=== PATIENT | female | born 1970 | race Caucasian/White ===

== ENCOUNTER 2018-03-10 06:45 | Observation (INO) | payer BC ==
[2018-03-10] MEDS ORDERED: SODIUM CHLORIDE 0.9% 1,000 ML IV STA (07:53)
[2018-03-10] MEDS ORDERED: FAMOTIDINE 20 MG/2 ML VIAL IV STA (07:53)
[2018-03-10] MEDS ORDERED: ONDANSETRON 4 MG/2 ML VIAL IVP STA (07:53)
--- NOTE | 2018-03-10 07:59 | ED ---
General Adult HPI - General Chief complaint: Abdominal Pain Stated complaint: Poss gallstones Time Seen by Provider: 03/10/18 07:11 Source: patient, family, RN notes reviewed Mode of arrival: ambulatory Limitations: no limitations - History of Present Illness Initial comments: Patient 47-year-old female presented to the emergency room today with chief complaint of epigastric and upper quadrant pain. Patient states that she's had similar symptoms in the past with gallbladder issues. She does admit that she been told she has gallstones. She states she is usually able to watch her diet. She states that symptoms started last night approximately midnight. She states increased epigastric pain and right upper quadrant. Patient denies any other complaints or symptoms currently. Patient denies any recent fever, chills , shortness of breath, chest pain, back pain, numbness or tingling, dysuria or hematuria, constipation or diarrhea, headaches or visual changes, or any other complaints. - Related Data Home Medications Medication Instructions Recorded Confirmed Loratadine-Pseudoeph 10-240 mg 1 tab PO DAILY 03/10/18 03/10/18 [Claritin-D 24 Hr] Allergies Allergy/AdvReac Type Severity Reaction Status Date / Time No Known Allergies Allergy Verified 03/10/18 07:17 Review of Systems ROS Statement: Those systems with pertinent positive or pertinent negative responses have been documented in the HPI. ROS Other: All systems not noted in ROS Statement are negative. Past Medical History Additional Past Medical History / Comment(s): gall stones History of Any Multi-Drug Resistant Organisms: None Reported Additional Past Surgical History / Comment(s): partial thyroid Past Psychological History: No Psychological Hx Reported Smoking Status: Never smoker Past Alcohol Use History: Occasional Past Drug Use History: None Reported General Exam - General Exam Comments Initial Comments: General: The patient is awake and alert, in no distress, and does not appear acutely ill. Eye: Extra-ocular movements are intact. No nystagmus. There is normal conjunctiva bilaterally. No signs of icterus. Ears, nose, mouth and throat: There are moist mucous membranes and no oral lesions. Neck: The neck is supple, there is no tenderness or JVD. Cardiovascular: There is a regular rate and rhythm. No murmur, rub or gallop is appreciated. Respiratory: Lungs are clear to auscultation, respirations are non-labored, breath sounds are equal. No wheezes, stridor, rales, or rhonchi. Gastrointestinal: Abdomen soft on palpation. Patient does have tenderness epigastric and right upper quadrants. No rebound, guarding or CVA tenderness. Musculoskeletal: Normal ROM, no tenderness. Sensation intact. Neurological: A&O x 3. CN II-XII intact, There are no obvious motor or sensory deficits. Coordination appears grossly intact. Speech is normal. Skin: Skin is warm and dry and no rashes or lesions are noted. Psychiatric: Cooperative, appropriate mood & affect, normal judgment. Limitations: no limitations Course Vital Signs 03/10/18 06:47 Temperature 98.2 F Pulse Rate 78 Respiratory 18 Rate Blood Pressure 134/84 O2 Sat by Pulse 98 Oximetry Medical Decision Making - Medical Decision Making Patient's labs been reviewed. Patient's worsen, complete currently. Patient ultrasound does show normal bowel stone in the neck of gallbladder. Case discussed with attending physician Dr. Farmer who did discuss case with surgeon plant floor automation manager Dr. Hartley will admit the patient. - Lab Data Result diagrams: 03/10/18 07:55 03/10/18 07:55 Lab Results 03/10/18 03/10/18 03/10/18 Range/Units 07:40 07:40 07:55 WBC (3.8-10.6) k/uL RBC (3.80-5.40) m/uL Hgb (11.4-16.0) gm/dL Hct (34.0-46.0) % MCV (80.0-100.0) fL MCH (25.0-35.0) pg MCHC (31.0-37.0) g/dL RDW (11.5-15.5) % Plt Count (150-450) k/uL Neutrophils % % Lymphocytes % % Monocytes % % Eosinophils % % Basophils % % Neutrophils # (1.3-7.7) k/uL Lymphocytes # (1.0-4.8) k/uL Monocytes # (0-1.0) k/uL Eosinophils # (0-0.7) k/uL Basophils # (0-0.2) k/uL Sodium 138 (137-145) mmol/L Potassium 4.5 (3.5-5.1) mmol/L Chloride 106 (98-107) mmol/L Carbon Dioxide 25 (22-30) mmol/L Anion Gap 7 mmol/L BUN 13 (7-17) mg/dL Creatinine 0.63 (0.52-1.04) mg/dL Est GFR (CKD-EPI)AfAm >90 (>60 ml/min/1.73 sqM) Est GFR (CKD-EPI)NonAf >90 (>60 ml/min/1.73 sqM) Glucose 110 H (74-99) mg/dL Calcium 8.5 (8.4-10.2) mg/dL Total Bilirubin 0.3 (0.2-1.3) mg/dL AST 20 (14-36) U/L ALT 24 (9-52) U/L Alkaline Phosphatase 56 (38-126) U/L Total Protein 6.5 (6.3-8.2) g/dL Albumin 3.8 (3.5-5.0) g/dL Amylase 31 (30-110) U/L Lipase 138 (23-300) U/L Urine Color Yellow Urine Appearance Clear (Clear) Urine pH 5.5 (5.0-8.0) Ur Specific [place] 1.022 (1.001-1.035) Urine Protein Negative (Negative) Urine Glucose (UA) Negative (Negative) Urine Ketones Negative (Negative) Urine Blood Negative (Negative) Urine Nitrite Negative (Negative) Urine Bilirubin Negative (Negative) Urine Urobilinogen <2.0 (<2.0) mg/dL Ur Leukocyte Esterase Negative (Negative) Urine HCG, Qual Not Detected (Not Detectd) 03/10/18 Range/Units 07:55 WBC 8.9 (3.8-10.6) k/uL RBC 4.66 (3.80-5.40) m/uL Hgb 13.7 (11.4-16.0) gm/dL Hct 41.8 (34.0-46.0) % MCV 89.8 (80.0-100.0) fL MCH 29.4 (25.0-35.0) pg MCHC 32.7 (31.0-37.0) g/dL RDW 13.2 (11.5-15.5) % Plt Count 228 (150-450) k/uL Neutrophils % 80 % Lymphocytes % 10 % Monocytes % 3 % Eosinophils % 7 % Basophils % 0 % Neutrophils # 7.1 (1.3-7.7) k/uL Lymphocytes # 0.9 L (1.0-4.8) k/uL Monocytes # 0.3 (0-1.0) k/uL Eosinophils # 0.6 (0-0.7) k/uL Basophils # 0.0 (0-0.2) k/uL Sodium (137-145) mmol/L Potassium (3.5-5.1) mmol/L Chloride (98-107) mmol/L Carbon Dioxide (22-30) mmol/L Anion Gap mmol/L BUN (7-17) mg/dL Creatinine (0.52-1.04) mg/dL Est GFR (CKD-EPI)AfAm (>60 ml/min/1.73 sqM) Est GFR (CKD-EPI)NonAf (>60 ml/min/1.73 sqM) Glucose (74-99) mg/dL Calcium (8.4-10.2) mg/dL Total Bilirubin (0.2-1.3) mg/dL AST (14-36) U/L ALT (9-52) U/L Alkaline Phosphatase (38-126) U/L Total Protein (6.3-8.2) g/dL Albumin (3.5-5.0) g/dL Amylase (30-110) U/L Lipase (23-300) U/L Urine Color Urine Appearance (Clear) Urine pH (5.0-8.0) Ur Specific [place] (1.001-1.035) Urine Protein (Negative) Urine Glucose (UA) (Negative) Urine Ketones (Negative) Urine Blood (Negative) Urine Nitrite (Negative) Urine Bilirubin (Negative) Urine Urobilinogen (<2.0) mg/dL Ur Leukocyte Esterase (Negative) Urine HCG, Qual (Not Detectd) Disposition Clinical Impression: Cholecystitis Disposition: ADMITTED IP TO THIS HOSP Condition: Good Is patient prescribed a controlled substance at d/c from ED?: No Referrals: Fareed Burgos DO [Primary Care Provider] - 1-2 days Time of Disposition: 10:00
[2018-03-10 08:03] LABS: Appearance,Urine Clear (Clear); Bilirubin,Urine Negative (Negative); Blood,Urine Negative (Negative); Color,Urine Yellow; Glucose,Urine (UA) Negative (Negative); Ketones,Urine Negative (Negative); Leukocyte Esterase,Urine Negative (Negative); Nitrite,Urine Negative (Negative); PH, Urine 5.5 (5.0-8.0); Protein,Urine Negative (Negative); Specific Gravity,Urine 1.022 (1.001-1.035); Urobilinogen,Urine <2.0 mg/dL (<2.0)
[2018-03-10 08:16] LABS: Basophils % (A) 0 %; Eosinophils # (A) 0.6 k/uL (0-0.7); Eosinophils % (A) 7 %; HCT 41.8 % (34.0-46.0); HGB 13.7 gm/dL (11.4-16.0); Lymphocytes # (A) 0.9 k/uL (1.0-4.8); Lymphocytes % (A) 10 %; MCH 29.4 pg (25.0-35.0); MCHC 32.7 g/dL (31.0-37.0); MCV 89.8 fL (80.0-100.0); Monocytes # (A) 0.3 k/uL (0-1.0); Monocytes % (A) 3 %; Neutrophils # (A) 7.1 k/uL (1.3-7.7); Neutrophils % (A) 80 %; Platelet Count 228 k/uL (150-450); RBC 4.66 m/uL (3.80-5.40); RDW 13.2 % (11.5-15.5); WBC 8.9 k/uL (3.8-10.6)
[2018-03-10 08:34] LABS: ALT 24 U/L (9-52); AST 20 U/L (14-36); Albumin 3.8 g/dL (3.5-5.0); Alkaline Phosphatase 56 U/L (38-126); Amylase 31 U/L (30-110); Anion Gap 7 mmol/L; Blood Urea Nitrogen 13 mg/dL (7-17); Calcium 8.5 mg/dL (8.4-10.2); Carbon Dioxide 25 mmol/L (22-30); Chloride 106 mmol/L (98-107); Glucose 110 mg/dL (74-99); Lipase 138 U/L (23-300); Potassium 4.5 mmol/L (3.5-5.1); Sodium 138 mmol/L (137-145); Total Bilirubin 0.3 mg/dL (0.2-1.3); Total Protein 6.5 g/dL (6.3-8.2)
--- NOTE | 2018-03-10 09:32 | US ---
EXAMINATION TYPE: US abdomen limited DATE OF EXAM: 03/10/2018 COMPARISON: NONE CLINICAL HISTORY: Pain. Epigastric pain; known gallstones per patient EXAM MEASUREMENTS: Liver Length: 13.4 cm Gallbladder Wall: 3.5mm CBD: 0.2 cm Right Kidney: 10.6 x 6.0 x 4.5 cm Pancreas: heterogeneous appearance with prominent pancreatic duct at 2.4mm Liver: wnl Gallbladder: couple of nonmobile shadowing stones noted in neck with larger calcification size = 1.5 x 1.2 x 0.7cm Evidence for sonographic Singh's sign: yes CBD: wnl Right Kidney: wnl IMPRESSION: 1. Cholelithiasis with mild gallbladder wall thickening. No pericholecystic fluid or CBD dilatation.
[2018-03-10] MEDS ORDERED: NALOXONE 0.4 MG/ML 1 ML VIAL IV PRN ×2 (10:00→11:58)
[2018-03-10] MEDS ORDERED: ONDANSETRON 4 MG/2 ML VIAL IVP PRN (10:00)
[2018-03-10] MEDS ORDERED: HYDROmorphone 1 MG/ML 1 ML SYRINGE IVP PRN ×2 (10:00→11:58)
[2018-03-10] MEDS ORDERED: LACTATED RINGERS 1,000 ML IV ONE ×2 (10:24→11:58)
[2018-03-10] MEDS ORDERED: ONDANSETRON 4 MG/2 ML VIAL IVP ONE (10:27)
[2018-03-10] MEDS ORDERED: DEXAMETHASONE SOD PHOSPHATE 10 MG/ML 1 ML VIAL IV ONE (10:27)
--- NOTE | 2018-03-10 11:03 | P.GSHP ---
History of Present Illness H&P Date: 03/10/18 Chief Complaint: Right upper quadrant pain This a 47-year-old female who's had complaints or quadrant pain. Patient presents emergency room and was worked up found have evidence of cholelithiasis. She presents today for laparoscopic cholecystectomy. Past Medical History Additional Past Medical History / Comment(s): gall stones History of Any Multi-Drug Resistant Organisms: None Reported Additional Past Surgical History / Comment(s): partial thyroid Past Psychological History: No Psychological Hx Reported Smoking Status: Never smoker Past Alcohol Use History: Occasional Past Drug Use History: None Reported Medications and Allergies Home Medications Medication Instructions Recorded Confirmed Type Loratadine-Pseudoeph 10-240 mg 1 tab PO DAILY 03/10/18 03/10/18 History [Claritin-D 24 Hr] Allergies Allergy/AdvReac Type Severity Reaction Status Date / Time No Known Allergies Allergy Verified 03/10/18 10:26 Surgical - Exam Vital Signs Temp Pulse Resp BP Pulse Ox 98.2 F 78 18 134/84 98 03/10/18 06:47 03/10/18 06:47 03/10/18 06:47 03/10/18 06:47 03/10/18 06:47 - General well developed, no distress - Eyes PERRL - ENT normal pinna - Neck no masses - Respiratory normal expansion - Cardiovascular Rhythm: regular - Abdomen Mild right quadrant tenderness Abdomen: soft Results Cholelithiasis - Labs 03/10/18 07:55 03/10/18 07:55 Abnormal Lab Results - Last 24 Hours (Table) 03/10/18 03/10/18 Range/Units 07:55 07:55 Lymphocytes # 0.9 L (1.0-4.8) k/uL Glucose 110 H (74-99) mg/dL Diabetes panel 03/10/18 Range/Units 07:55 Sodium 138 (137-145) mmol/L Potassium 4.5 (3.5-5.1) mmol/L Chloride 106 (98-107) mmol/L Carbon Dioxide 25 (22-30) mmol/L BUN 13 (7-17) mg/dL Creatinine 0.63 (0.52-1.04) mg/dL Glucose 110 H (74-99) mg/dL Calcium 8.5 (8.4-10.2) mg/dL AST 20 (14-36) U/L ALT 24 (9-52) U/L Alkaline Phosphatase 56 (38-126) U/L Total Protein 6.5 (6.3-8.2) g/dL Albumin 3.8 (3.5-5.0) g/dL Calcium panel 03/10/18 Range/Units 07:55 Calcium 8.5 (8.4-10.2) mg/dL Albumin 3.8 (3.5-5.0) g/dL Pituitary panel 03/10/18 Range/Units 07:55 Sodium 138 (137-145) mmol/L Potassium 4.5 (3.5-5.1) mmol/L Chloride 106 (98-107) mmol/L Carbon Dioxide 25 (22-30) mmol/L BUN 13 (7-17) mg/dL Creatinine 0.63 (0.52-1.04) mg/dL Glucose 110 H (74-99) mg/dL Calcium 8.5 (8.4-10.2) mg/dL Adrenal panel 03/10/18 Range/Units 07:55 Sodium 138 (137-145) mmol/L Potassium 4.5 (3.5-5.1) mmol/L Chloride 106 (98-107) mmol/L Carbon Dioxide 25 (22-30) mmol/L BUN 13 (7-17) mg/dL Creatinine 0.63 (0.52-1.04) mg/dL Glucose 110 H (74-99) mg/dL Calcium 8.5 (8.4-10.2) mg/dL Total Bilirubin 0.3 (0.2-1.3) mg/dL AST 20 (14-36) U/L ALT 24 (9-52) U/L Alkaline Phosphatase 56 (38-126) U/L Total Protein 6.5 (6.3-8.2) g/dL Albumin 3.8 (3.5-5.0) g/dL Assessment and Plan Assessment: Right upper quadrant pain Cholelithiasis We will perform laparoscopic cholecystectomy.
[2018-03-10] MEDS ORDERED: LIDOCAINE 1% INJ 10MG/ML (20 ML MDV) ONE (11:17)
[2018-03-10] MEDS ORDERED: PROPOFOL 10 MG/ML 20 ML VIAL IV ONE (11:17)
[2018-03-10] MEDS ORDERED: NEOSTIGMINE 1 MG/ML 10 ML VIAL ONE (11:17)
[2018-03-10] MEDS ORDERED: ROCURONIUM BROMIDE 10 MG/ML 10 ML VIAL IV ONE (11:17)
[2018-03-10] MEDS ORDERED: fentaNYL (PF) 50 MCG/ML 2 ML AMP ONE (11:17)
[2018-03-10] MEDS ORDERED: MIDAZOLAM 2 MG/2 ML VIAL ONE (11:17)
[2018-03-10] MEDS ORDERED: SUCCINYLCHOLINE CHLORIDE 100 MG/5 ML SYR IV ONE (11:17)
[2018-03-10] MEDS ORDERED: GLYCOPYRROLATE 0.2 MG/ML 2 ML VIAL ONE (11:17)
[2018-03-10] MEDS ORDERED: KETOROLAC 30 MG/ML 1 ML VIAL ONE (11:17)
[2018-03-10] MEDS ORDERED: SODIUM CHLORIDE 0.9% 50 ML with ceFAZolin 2,000 MG IV ONE ×2 (11:30)
[2018-03-10] MEDS ORDERED: BUPIVACAIN-EPI 0.25%-1:200,000 30 ML VIAL SQ ONE (11:35)
--- NOTE | 2018-03-10 11:57 | P.OP ---
Date of Procedure: 03/10/18 Preoperative Diagnosis: Cholecystitis Postoperative Diagnosis: Cholecystitis Procedure(s) Performed: Laparoscopic cholecystectomy Anesthesia: MARELE Surgeon: Jesus Hartlye Estimated Blood Loss (ml): 5 Pathology: other (Gallbladder) Condition: stable Disposition: PACU Description of Procedure: The patient was placed on the operating table. The patient received a general endotracheal tube anesthesia. The patients abdomen was prepped and draped in the usual sterile fashion. Through an infraumbilical stab incision, the fascia of the anterior abdominal wall was grasped with a pair of Kochers and then the Veress needle was placed in the peritoneal cavity. Position of the Veress needle was confirmed with positive drop test. The abdomen was then insufflated. After adequate insufflation, the 10 mm trocar was placed in the peritoneal cavity. Following this the laparoscope was placed in the peritoneal cavity. The patient was placed in the head-up, right side up position and then a 5 mm trocar was placed in the right lateral and right subcostal position under direct visualization. A 8 mm trocar was placed in the epigastric position. The gallbladder was grasped in the fundus and infundibulum. Traction on the gallbladder was placed in the lateral and the cephalad positions. The triangle of Calot was visualized.. The cystic duct was bluntly dissected until the union of the cystic duct and common bile duct was seen. The cystic duct was then divided and sealed with the Harmonic scissors. A PDS Endoloop was then placed throughout the cystic duct stump. The cystic artery divided and sealed with the Harmonic scissors. The gallbladder was then removed from the liver bed using Harmonic scissors. The gallbladder was then extracted through the epigastric port site. Operative field was checked for any bleeding spots and Harmonic scissors was used to coagulate the liver bed. The abdomen was irrigated. The trocars were removed. The skin was closed using interrupted 3-0 Vicryl suture. Dermabond dressing were applied. The patient tolerated the procedure well.
[2018-03-10] MEDS: HYDROmorphone 0.5 MG/0.5 ML SYRINGE IVP PRN ×2 (12:35→12:40)
[2018-03-10] MEDS ORDERED: diphenhydrAMINE 50 MG/ML 1 ML VIAL IVP ONE (13:06)
--- NOTE | 2018-03-10 14:35 | P.CONS ---
History of Present Illness - Reason for Consult Cholecystitis - History of Present Illness 47-year-old female came in with severe right UPPER quadrant abdominal pain found to have gallbladder thickening, underwent emergent cholecystectomy. Patient denied any vomiting did have nausea denied any fever chills patient doesn't have any leukocytosis here. Patient is feeling better. Patient's diet is being advanced. Patient doesn't have any major medical problems. Review of Systems REVIEW OF SYSTEMS: CONSTITUTIONAL: No fever, no malaise, no fatigue. HEENT: No recent visual problems or hearing problems. Denied any sore throat. CARDIOVASCULAR: No chest pain, orthopnea, PND, no palpitations, no syncope. PULMONARY: No shortness of breath, no cough, no hemoptysis. GASTROINTESTINAL: As mentioned in HPI NEUROLOGICAL: No headaches, no weakness, no numbness. HEMATOLOGICAL: Denies any bleeding or petechiae. GENITOURINARY: Denies any burning micturition, frequency, or urgency. MUSCULOSKELETAL/RHEUMATOLOGICAL: Denies any joint pain, swelling, or any muscle pain. ENDOCRINE: Denies any polyuria or polydipsia. The rest of the 14-point review of systems is negative. Past Medical History Additional Past Medical History / Comment(s): gall stones History of Any Multi-Drug Resistant Organisms: None Reported Additional Past Surgical History / Comment(s): partial thyroid Past Psychological History: No Psychological Hx Reported Smoking Status: Never smoker Past Alcohol Use History: Occasional Past Drug Use History: None Reported Medications and Allergies Home Medications Medication Instructions Recorded Confirmed Type Loratadine-Pseudoeph 10-240 mg 1 tab PO DAILY 03/10/18 03/10/18 History [Claritin-D 24 Hr] Allergies Allergy/AdvReac Type Severity Reaction Status Date / Time No Known Allergies Allergy Verified 03/10/18 10:26 Physical Exam Vitals: Vital Signs Temp Pulse Pulse Pulse Resp BP BP 03/10/18 13:54 73 16 121/63 03/10/18 13:37 73 16 129/65 03/10/18 13:24 73 16 134/67 03/10/18 13:11 73 16 128/64 03/10/18 12:56 55 L 16 129/63 03/10/18 12:40 55 L 16 131/70 03/10/18 12:25 65 18 141/73 03/10/18 12:08 96.8 F L 104 H 18 115/58 09/17/18 10:21 98.3 F 77 16 138/82 03/10/18 06:47 98.2 F 78 18 134/84 Pulse Ox 03/10/18 13:54 95 03/10/18 13:37 95 03/10/18 13:24 95 03/10/18 13:11 95 03/10/18 12:56 95 03/10/18 12:40 100 03/10/18 12:25 100 03/10/18 12:08 100 03/10/18 10:21 100 03/10/18 06:47 98 Intake and Output 03/09/18 03/10/18 03/10/18 22:59 06:59 14:59 Intake Total 950 Output Total 5 Balance 945 Intake: IV 950 Output: Estimated Blood Loss 5 Other: Weight 70.352 kg PHYSICAL EXAMINATION: GENERAL: The patient is alert and oriented x3, not in any acute distress. Well developed, well nourished. HEENT: Pupils are round and equally reacting to light. EOMI. No scleral icterus. No conjunctival pallor. Normocephalic, atraumatic. No pharyngeal erythema. No thyromegaly. CARDIOVASCULAR: S1 and S2 present. No murmurs, rubs, or gallops. PULMONARY: Chest is clear to auscultation, no wheezing or crackles. ABDOMEN: Soft, nontender, surgical site areas are clean bowel sounds are present. MUSCULOSKELETAL: No joint swelling or deformity. EXTREMITIES: No cyanosis, clubbing, or pedal edema. NEUROLOGICAL: Gross neurological examination did not reveal any focal deficits. SKIN: No rashes. Results CBC & Chem 7: 03/10/18 07:55 03/10/18 07:55 Labs: Abnormal Lab Results - Last 24 Hours (Table) 03/10/18 03/10/18 Range/Units 07:55 07:55 Lymphocytes # 0.9 L (1.0-4.8) k/uL Glucose 110 H (74-99) mg/dL Assessment and Plan Plan: -Possible acute cholecystitis: Patient is presently not on antibiotics antibiotics as per primary service patient is on Toradol and opiate analgesia as needed. -DVT prophylaxis with enoxaparin Patient is clinically doing well diet is being advanced we'll can you to follow on as-needed basis.
[2018-03-10 16:06] VITALS: BMI 27.4
[2018-03-10] MEDS: KETOROLAC 30 MG/ML 1 ML VIAL IVP SCH ×2 (16:22→20:23)
[2018-03-10] MEDS: HYDROcodone/APAP 5-325MG 1 EACH TAB PO PRN ×2 (17:20→23:57)
[2018-03-11 00:29] VITALS: RESP 16
[2018-03-11] MEDS: KETOROLAC 30 MG/ML 1 ML VIAL IVP SCH ×2 (02:05→09:43)
[2018-03-11 08:46] VITALS: BP 114/76; PULSE 67; TEMP 98.3
[2018-03-11] MEDS ORDERED: HYDROcodone/APAP 5-325MG 1 EACH TAB PO PRN (08:52)
[2018-03-11] MEDS ORDERED: ENOXAPARIN 40 MG/0.4 ML SYRINGE SQ SCH (09:00)
[2018-03-11] MEDS: HYDROcodone/APAP 5-325MG 1 EACH TAB PO PRN (09:42)
--- NOTE | 2018-03-11 10:14 | P.DS ---
Providers Date of admission: 03/10/18 10:28 Expected date of discharge: 03/11/18 Attending physician: Jesus Hartley Consults: 03/10/18 11:58 Consult Physician Routine Consulting Provider: Yadira Pedro Consult Reason/Comments: Medical management Do you want consulting provider notified?: Yes Primary care physician: Fareed Burgos [facility] Course: 47-year-old female presented on the day of admission with a chief complaint of developing right upper quadrant pain. In the emergency room patient was found have evidence of cholelithiasis. Patient underwent a laparoscopic cholecystectomy on the 12 of March. There were no postop events. On the day of discharge surgical incision site dry abdomen soft nondistended passing gas tolerating diet [place] effective for pain control patient was felt to be appropriate to proceed with a discharge on March 11 Impression discharge diagnosis Present on admission right upper quadrant abdominal pain suspect due to acute cholelithiasis Postop March 10 laparoscopic cholecystectomy for cholelithiasis The above impression and plan of care have been discussed and directed by signing physician. Cata Whiteside nurse practitioner acting as scribe for signing physician. Patient Condition at Discharge: Good Plan - Discharge Summary Discharge Rx Participant: Yes New Discharge Prescriptions: New HYDROcodone/APAP 5-325MG [[place] 5-325] 1 tab PO Q6HR PRN 3 Days #12 tab PRN Reason: Mild Breakthrough Pain No Action Loratadine-Pseudoeph 10-240 mg [Claritin-D 24 Hr] 1 tab PO DAILY Discharge Medication List Loratadine-Pseudoeph 10-240 mg [Claritin-D 24 Hr] 1 tab PO DAILY 03/10/18 [ History] HYDROcodone/APAP 5-325MG [[place] 5-325] 1 tab PO Q6HR PRN 3 Days #12 tab [Rx] Follow up Appointment(s)/Referral(s): Fareed Burgos DO [Primary Care Provider] - 1-2 days Jesus Hartley MD [STAFF PHYSICIAN] - 1 Week Patient Instructions/Handouts: *Surgery [facility] - Laparoscopic Cholecystectomy Discharge Instructions, Ketorolac (By injection), Low Fat Diet (GEN), Laparoscopic Cholecystectomy (DC) Activity/Diet/Wound Care/Special Instructions: No tub bath for six weeks. Shower daily. No lifting over 10 pounds for the next 6 weeks. Use [id number] stool softeners for constipation as needed May use ice packs to surgical site. No driving while taking narcotic for pain. May use [id number] Tylenol and Motrin as needed for pain Discharge Disposition: HOME SELF-CARE
--- NOTE | 2018-03-11 11:04 | P.PN ---
Subjective Patient underwent the cystectomy laparoscopic clinically doing well overnight events patient is being discharged today in stable medical condition to home patient is able to tolerate diet and no significant pain Objective - Vital Signs Vital signs: Vital Signs Temp 98.3 F 03/11/18 07:47 Pulse 67 03/11/18 07:47 Resp 16 03/11/18 07:47 BP 114/76 03/11/18 07:47 Pulse Ox 97 03/11/18 07:47 Intake & Output 03/10/18 03/11/18 03/11/18 18:59 06:59 18:59 Intake Total 950 Output Total 505 675 Balance 445 -675 Weight 70.352 kg Intake: IV 950 Output: Urine 500 675 Estimated Blood Loss 5 Other: # Voids 1 1 - Exam PHYSICAL EXAMINATION: GENERAL: The patient is alert and oriented x3, not in any acute distress. Well developed, well nourished. HEENT: Pupils are round and equally reacting to light. EOMI. No scleral icterus. No conjunctival pallor. Normocephalic, atraumatic. No pharyngeal erythema. No thyromegaly. CARDIOVASCULAR: S1 and S2 present. No murmurs, rubs, or gallops. PULMONARY: Chest is clear to auscultation, no wheezing or crackles. ABDOMEN: Soft, nontender, nondistended, normoactive bowel sounds. No palpable organomegaly. MUSCULOSKELETAL: No joint swelling or deformity. EXTREMITIES: No cyanosis, clubbing, or pedal edema. NEUROLOGICAL: Gross neurological examination did not reveal any focal deficits. SKIN: No rashes. - Labs CBC & Chem 7: 03/10/18 07:55 03/10/18 07:55 Assessment and Plan Plan: -Possible acute cholecystitis: Patient is presently not on antibiotics antibiotics as per primary service patient is on Toradol and opiate analgesia as needed. -Patient is okay to be discharged in stable medical condition to home
== END 2018-03-11 11:09 | disposition home or self-care (01) ==
LOC: EC 06:45 → 6PED 10:28
PROVIDERS: ADMIT Surgery; ATTEND Surgery
DX: K80.10 Calculus of gallbladder with chronic cholecystitis without obstruction (principal); Z79.899 Other long term (current) drug therapy
CPT/HCPCS: 47562; 99285 ×2; 96374 ×2; 96375 ×2; 96361 ×2; 36415; 88304; 80053; 82150; 83690; 85025; 81003; 81025; 76705; G0378 ×2; J1200; J1100; J2405; J1885 ×2; J0690; J1170

== ENCOUNTER → 2024-09-08 | Outpatient (CLI) | payer OTHER ==
--- NOTE | 2024-09-08 07:48 | MM ---
Reason for Exam: Screening (asymptomatic). Last mammogram was performed 10 year(s) and 8 month(s) ago. Patient History: Menarche at age 14. First Full-Term at age 19. Postmenopausal. Hormonal Contraceptives for 1 year from age 22 until age 23. Last menstrual period: Risk Values: Patricia 5 year model risk: 0.8%. NCI Lifetime model risk: 6.3%. Prior Study Comparison: 04/24/2010 Bilateral Screening Mammogram, [facility]. 11/20/2012 Bilateral Screening Mammogram, [facility]. 01/11/2014 Bilateral Screening Mammogram, [facility]. Tissue Density: The breasts are heterogeneously dense, which may obscure small masses. Findings: Analyzed By CAD. Benign-appearing bilateral axillary lymph nodes are redemonstrated. There is no suspicious new group of microcalcifications or new suspicious mass in either breast. Overall Assessment: Negative, BI-RAD 1 Management: Screening Mammogram of both breasts in 1 year. . Patient should continue monthly self-breast exams. A clinical breast exam by your physician is recommended on an annual basis. This exam should not preclude additional follow-up of suspicious palpable abnormalities. Note on Patricia scores and lifetime risk: 1. A Patricia score greater than 3% is considered moderate risk. If this is the case, consider specialist referral to assess eligibility for a risk reducing agent. 2. If overall lifetime risk for the development of breast cancer is 20% or higher, the patient may qualify for future screening with alternating mammogram and breast MRI. [facility], , 09/08/2024 7:45 AM. Electronically signed and approved by: Yannick Trinidad M.D.
== END | disposition home or self-care (01) ==
LOC: RADMAMWWP 07:16
PROVIDERS: ATTEND Obstetrics & Gynecology
DX: Z12.31 Encounter for screening mammogram for malignant neoplasm of breast (principal); R92.333 Mammographic heterogeneous density, bilateral breasts; Z78.0 Asymptomatic menopausal state
CPT/HCPCS: 77063; 77067